=== PATIENT | female | born 1945 | race African-American/Black ===

== ENCOUNTER 2017-12-28 18:59 | Emergency (ER) | payer MEDICARE, MEDICAID ==
[~2017-12-28] VITALS: Ht 167.6 cm; Wt 76.0 kg
[~2017-12-28 18:59] MED LIST: AMLO5TAB4; ASPI1CPM6 PO; CLIN300C11 PO; DOCU-139; ETOMIDATE 2MG/ML 10ML VIAL IV ONE; LISI10TA5 PO; LORA10TA7 PO; METR500T PO; P20 PO
[2017-12-28] MEDS ORDERED: ONDANSETRON HCL 4MG/2ML VIAL IV STA (20:53)
[2017-12-28 21:31] LABS: BASOPHILS % 0.3 % (0.0-2.0); EOSINOPHILS % 0.6 % (0.0-5.0); HEMATOCRIT. 40.7 % (36.0-48.0); HEMOGLOBIN. 13.2 g/dL (12.0-16.0); MEAN CORPUSCULAR HEMOGLOBIN 31.3 pg (28.0-32.0); MEAN CORPUSCULAR VOLUME 96.5 fL (81.0-99.0); MEAN PLATELET VOLUME 9.5 fl (7.4-10.4); MONOCYTES % 8.8 % (2.0-8.0); NEUTROPHILS % 80.3 % (40.0-76.0); PLATELET 211 x1000/uL (130-400); RED BLOOD CELL COUNT 4.22 mill/uL (4.2-5.4); RED CELL DISTRIBUTION WIDTH 14.7 % (11.6-14.6)
[2017-12-28 21:39] LABS: CHLORIDE 104 mEq/L (98-107); ETHANOL BLOOD < 10 mg/dL; TROPONIN I 0.05 ng/mL (0.00-0.04)
[2017-12-28 22:04] LABS: INR 1.2; PROTHROMBIN TIME 12.2 sec (9.4-11.6)
[2017-12-28] MEDS ORDERED: CEFTRIAXONE 1 G PREMIX 50 ML IV ONE (22:45)
[2017-12-28] MEDS ORDERED: AZITHROMYCIN 500 MG in DEXT 5% WATER 250 ML IV ONE (22:45)
[2017-12-28] MEDS ORDERED: SODIUM CHLORIDE 0.9% 1000ML BAG (SEPSIS BOLUS) IV ONE (22:45)
[2017-12-28 23:00] VITALS: BP 179/91
[2017-12-28] MEDS ORDERED: LABETALOL 5MG/ML SYR 20 MG/4 ML SYRINGE IV NR (23:45)
[2017-12-28] MEDS ORDERED: SODIUM CHLORIDE 0.9% 1,000 ML IV ONE (23:54)
[2017-12-28] MEDS ORDERED: NICARDIPINE 40MG/200ML PREMIX 200 ML IV ONE (23:59)
== END 2017-12-29 00:21 | disposition expired ==
LOC: ER 18:59 → CANBEDREQ 12-29 05:39
DX: I46.9 Cardiac arrest, cause unspecified (principal); I61.5 Nontraumatic intracerebral hemorrhage, intraventricular; G93.6 Cerebral edema; G91.9 Hydrocephalus, unspecified; I16.1 Hypertensive emergency; E87.2 Acidosis; D72.829 Elevated white blood cell count, unspecified; R79.89 Other specified abnormal findings of blood chemistry; R74.8 Abnormal levels of other serum enzymes; F10.129 Alcohol abuse with intoxication, unspecified; Z86.73 Personal history of transient ischemic attack (TIA), and cerebral infarction without residual deficits; Z88.6 Allergy status to analgesic agent; Z79.82 Long term (current) use of aspirin
CPT/HCPCS: 31500; 36415; 70450; 71045; 80053; 82962; 83605; 83690; 83880; 84484; 85025; 85610; 87040; 92950; 93005; 96365; 96375; 99291; G0482; J0456; J0696; J2405; J3490; J7030; J7060; A4315